=== PATIENT | male | born 1965 | race American Indian/Alaskan Native ===

== ENCOUNTER 2020-06-09 09:45 | Day surgery (SDC) | payer OTHER ==
[2020-06-09] MEDS ORDERED: ASPIRIN EC 325 MG TAB PO SCH (10:30)
[2020-06-09 10:38] LABS: Basophils # (Auto) 0.1 K/mm3 (0.0-0.1); Basophils % (Auto) 1.1 % (0.0-1.8); Eosinophils # (Auto) 0.3 K/mm3 (0.0-0.4); Hematocrit 42.3 % (35.5-45.6); Hemoglobin 14.6 gm/dl (11.8-15.2); Lymphocytes # (Auto) 2.2 K/mm3 (1.2-5.4); Lymphocytes % (Auto) 40.8 % (13.4-35.0); Mean Corpuscular HGB Conc 35 % (32-34); Mean Corpuscular Volume 90 fl (84-94); Monocytes # (Auto) 0.5 K/mm3 (0.0-0.8); Monocytes % (Auto) 8.4 % (0.0-7.3); Platelet Count 229 K/mm3 (140-440); Red Blood Count 4.72 M/mm3 (3.65-5.03); Red Cell Distribution Width 12.7 % (13.2-15.2)
[2020-06-09 10:52] LABS: INR 0.9 (0.87-1.13)
[2020-06-09] MEDS ORDERED: SODIUM CHLORIDE 0.9% 500 ML 500 ML IV SCH (11:00)
[2020-06-09 11:17] LABS: BUN/Creatinine Ratio 15; Blood Urea Nitrogen 15 mg/dL (9-20); Calcium 8.9 mg/dL (8.4-10.2); Hemolysis Index 1
[2020-06-09] MEDS: fentaNYL 100 MCG/2 ML INJ ONE ×3 (13:08→13:15)
[2020-06-09] MEDS: MIDAZOLAM 2 MG/2 ML INJ ONE ×3 (13:08→13:15)
[2020-06-09] MEDS: LIDOCAINE (2%) 20 MG/1 ML VIAL 20 ML MDV INFILTRATI ONE ×2 (13:08→13:13)
[2020-06-09] MEDS: NITROGLYCERIN SYRINGE 3 ML ONE ×2 (13:09→13:16)
[2020-06-09] MEDS: VERAPAMIL 5 MG/2 ML INJ ONE ×2 (13:09→13:16)
[2020-06-09] MEDS: HEPARIN 10,000 UNITS/10 ML VIAL ONE ×2 (13:09→13:16)
[2020-06-09] MEDS ORDERED: traMADol 50 MG TAB PO PRN (13:51)
--- NOTE | 2020-06-09 13:55 | Discharge Summary ---
Short Stay Discharge Plan Activity: advance as tolerated Weight Bearing Status: Full Weight Bearing Diet: low fat, low cholesterol, low salt, diabetic Wound: keep clean and dry Special Instructions: smoking cessation, no heavy lifting (3 days) Follow up with: PRIMARY CAREMD [Primary Care Provider] - 7 Days ROMÁN REEDER MD [Staff Physician] - 7 Days
--- NOTE | 2020-06-09 13:56 | Cardiac Catherization Report ---
CARDIAC CATHETERIZATION REPORT REASON FOR PROCEDURE: Chest pain, referred for left heart catheterization. PROCEDURES: 1. Left heart catheterization. 2. Selective left and right coronary angiography. 3. Left ventricular angiography. 4. Sedation time 1312, end 1330. I was present for the entire procedure and supervised the moderate sedation protocol. DESCRIPTION OF PROCEDURE: The patient was prepped and draped in a sterile fashion after informed consent. The right radial artery cath site was prepped and draped after a negative Galo's test. The right radial artery was entered using Seldinger technique followed by placement of a 6-German hydrophilic sheath. Routine radial cocktail was administered via the sheath. Selective left and right coronary angiography was performed using a #3.5 left Anali, and a #4 right Anali. A pigtail catheter was used for left ventricular angiography. The catheters were then removed, sheath removed, and hemostasis achieved using a TR band. The patient was returned to the postprocedure unit in stable condition. There were no complications. FINDINGS: HEMODYNAMICS: Left ventricular end-diastolic pressure was 16. Ascending aortic pressure was 114/81. There was no significant pressure gradient on pullback across the aortic valve. CORONARY ANGIOGRAPHY: The left main coronary artery was free of significant disease. The left anterior descending artery contained diffuse moderate ectasia throughout its proximal, mid, and distal segments. This was associated with moderate diffuse atherosclerosis of the proximal to mid LAD. There was uqyvjkdt-ng-ltvmvx diffuse disease of the mid to distal segments of the LAD. The circumflex artery similarly contained vczqyquq-oq-hzunbw atherosclerosis through its proximal, mid, and distal segments. There was a 60-70% stenosis of the proximal to mid AV groove circumflex. More distally, there was a 60-75% stenosis of the distal LAD leading to a terminal, small caliber obtuse marginal branch. The right coronary artery was dominant. This vessel also contained nzjy-uv-krgsyoph diffuse ectasia associated with diffuse whfmwblf-ia-toomskqytd severe atherosclerosis of the mid and distal AV groove segments of the vessel. There was tgunqjog-zi-pzejls diffuse disease of the right posterior descending branch. There was normal left ventricular systolic function with ejection fraction 60%. CONCLUSION: 1. Diffuse 3-vessel coronary artery disease, including diffuse distal vessel disease associated with diffuse 3-vessel ectasia as noted above. 2. Normal left ventricular systolic function, ejection fraction 60%. RECOMMENDATIONS: Medical therapy will be optimized, and the angiograms will be reviewed with multidisciplinary teams with for surgical versus multivessel percutaneous revascularization. JOB# [id number] DESIREE/JOSE AL
[2020-06-09] MEDS ORDERED: SODIUM CHLORIDE 0.9% 1000 ML 1,000 ML IV SCH (14:00)
[2020-06-09] MEDS ORDERED: HEPARIN/NS 5000 UNIT/500ML 1,000 ML IR ONE (16:32)
[2020-06-09 17:29] VITALS: BP 134/86
== END 2020-06-09 18:00 | disposition home or self-care (01) ==
LOC: CATHLABREC 09:45
PROVIDERS: ATTEND Internal Medicine Cardiovascular Disease
DX: R07.89 Other chest pain (principal); R94.30 Abnormal result of cardiovascular function study, unspecified; I25.10 Atherosclerotic heart disease of native coronary artery without angina pectoris; I10 Essential (primary) hypertension; F41.9 Anxiety disorder, unspecified; Z98.890 Other specified postprocedural states; Z90.49 Acquired absence of other specified parts of digestive tract; Z82.5 Family history of asthma and other chronic lower respiratory diseases; Z87.891 Personal history of nicotine dependence; Z79.899 Other long term (current) drug therapy; Z82.49 Family history of ischemic heart disease and other diseases of the circulatory system
CPT/HCPCS: 36415; 80048; 85025; 85610; 85730; 93005; 93458; 99156; C1894; J1644; J2250; J3010; J7040; Q9967